=== PATIENT | male | born 1965 | race Caucasian/White ===

== ENCOUNTER → 2021-06-15 | Outpatient (CLI) | payer OTHER ==
--- NOTE | 2021-06-15 17:08 | Diagnostic Imaging Report ---
HISTORY: Bilateral shoulder pain TECHNIQUE: 3 views of the bilateral shoulders. COMPARISON: None FINDINGS: No acute fracture or dislocation is seen in the bilateral shoulders. There is mild degenerative change in the right acromioclavicular joint. Joint spaces are otherwise preserved. A small calcification is seen adjacent to the greater tuberosity of the right humeral head. Alignment appears normal. IMPRESSION: 1. No acute osseous abnormality seen in the bilateral shoulders. 2. Mild degenerative changes in the right acromioclavicular joint. 3. Small calcification adjacent to the right humeral head, may represent a calcific tendinitis. Dictated by: Dictated on workstation # [id number]
== END ==
LOC: ORTHO 16:00
PROVIDERS: ATTEND Orthopaedic Surgery
DX: M19.011 Primary osteoarthritis, right shoulder (principal); M19.012 Primary osteoarthritis, left shoulder
CPT/HCPCS: 99203

== ENCOUNTER → 2021-12-19 | Outpatient (CLI) | payer OTHER ==
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
--- NOTE | 2021-12-19 11:33 | Diagnostic Imaging Report ---
INDICATION: Bilateral shoulder pain. EXAMINATION: Right shoulder MRI without contrast on 12/19/2021. FINDINGS: There is a partial-thickness intrasubstance tear at the footprint within the supraspinatus tendon with findings of tendinosis in the infraspinatus tendon. There is T2 hyperintensity within the musculotendinous junction of the supraspinatus tendon which could be due to a strain versus tendinosis. No discrete tear in the region is appreciated. The subscapularis tendon is intact. The long head of the biceps tendon is intact and lies within the bicipital groove. The biceps tendon anchor is intact. There is T2 hyperintensity throughout the posterior superior labrum, suspicious for a tear but poorly characterized without contrast. There is narrowing, spurring, and subchondral cystic change at the acromioclavicular joint. No acute osseous abnormality is appreciated. The visualized muscle volume is preserved. The visualized axilla is unremarkable. IMPRESSION: 1. Suspicion of a tear along the posterior superior labrum which is poorly characterized without contrast. If there are symptoms suggestive of a tear, post-arthrogram imaging would be recommended. 2. Partial-thickness intrasubstance tear of the supraspinatus tendon with findings of tendinosis more medially along the musculotendinous junction. 3. Tendinosis of the infraspinatus tendon. The remaining structures are intact with degenerative change at the acromioclavicular joint. Dictated by: Dictated on workstation # [id number]
== END ==
LOC: RAD 08:00
PROVIDERS: ATTEND Orthopaedic Surgery
DX: M25.712 Osteophyte, left shoulder (principal); M19.012 Primary osteoarthritis, left shoulder; M75.101 Unspecified rotator cuff tear or rupture of right shoulder, not specified as traumatic; M67.813 Other specified disorders of tendon, right shoulder; M19.011 Primary osteoarthritis, right shoulder
CPT/HCPCS: 73221

== ENCOUNTER → 2022-02-01 | Outpatient (CLI) | payer OTHER | LOC: ORTHO 11:45 | PROVIDERS: ATTEND Orthopaedic Surgery | DX: M75.101 Unspecified rotator cuff tear or rupture of right shoulder, not specified as traumatic (principal); M75.102 Unspecified rotator cuff tear or rupture of left shoulder, not specified as traumatic | CPT/HCPCS: 20610; 99213 ==